=== PATIENT | male | born 1950 | race Caucasian/White ===

== ENCOUNTER 2018-09-23 12:16 | Emergency (ER) | payer MEDICARE ==
[~2018-09-23] VITALS: Ht 188 cm; Wt 76.4 kg
--- NOTE | 2018-09-23 12:43 | NUR ---
PT NOT IN ROOM.
--- NOTE | 2018-09-23 12:55 | NUR ---
PT RETURN TO ROOM FROM RADIOLOGY. 68 YR OLD MALE HERE WITH C/O "POSSIBLE BUMP ON MY RIGHT KNEE AND POSSIBLY A CLOT IN MY RIGHT LEG" DENIES PAIN, HAS SWELLING. HAS BEEN HAVING RECENT FALLS. DENIES CP/SOB, FOUND TO BE IN AFIB.
[2018-09-23 13:08] LABS: BASOPHILS # (AUTO) 0.04 x10^3/uL (0-0.1); BASOPHILS % (AUTO) 1 % (0-1); EOSINOPHILS # (AUTO) 0.06 x10^3/uL (0-0.4); EOSINOPHILS % (AUTO) 1 % (1-7); LYMPHOCYTES # (AUTO) 0.69 x10^3/uL (1-3.4); LYMPHOCYTES % (AUTO) 9 % (22-44); MD NO; MEAN CORPUSCULAR HEMOGLOBIN 31.2 pg (27.5-34.5); MEAN CORPUSCULAR HGB CONC 32.2 g/dL (33.2-36.2); MEAN CORPUSCULAR VOLUME 96.8 fL (81-97); MEAN PLATELET VOLUME 8.6 fL (7.4-10.4); MONOCYTES # (AUTO) 0.53 x10^3/uL (0.2-0.8); MONOCYTES % (AUTO) 7 % (2-9); NEUTROPHILS % (AUTO) 82 % (42-75); PLATELET COUNT 226 x10^3/uL (130-400); RED BLOOD COUNT 4.36 x10^6/uL (4.38-5.82); RED CELL DISTRIBUTION WIDTH 13.3 % (9.4-14.8)
--- NOTE | 2018-09-23 13:09 | NUR ---
PT AND PTS S/O UPDATED ON POC. REPORT TO NORAH MENCHACA
[2018-09-23 13:13] LABS: INTERNATIONAL NORMALIZED RATIO 1.02 (0.93-1.1); PROTHROMBIN TIME 10.7 Seconds (9.6-11.5)
[2018-09-23 13:18] LABS: ALBUMIN 3.6 g/dL (3.4-5.0); ANION GAP 7 mmol/L (5-15); CALCIUM 8.4 mg/dL (8.5-10.1); CHLORIDE 109 mmol/L (98-107)
[2018-09-23 13:22] LABS: ALKALINE PHOSPHATASE 77 U/L (45-117); BILIRUBIN,TOTAL 0.9 mg/dL (0.2-1.0); CREATININE 1.08 mg/dL (0.7-1.3); TOTAL PROTEIN 6.6 g/dL (6.4-8.2)
--- NOTE | 2018-09-23 13:32 | NUR ---
ADDITIONAL ORDERS RECEIVED FROM MD AT THIS TIME
[2018-09-23 13:42] LABS: ALANINE AMINOTRANSFERASE 7 U/L (12-78)
[2018-09-23 14:24] VITALS: BP 105/69
--- NOTE | 2018-09-23 14:25 | NUR ---
TASK RN: HR [id number] AFIB. DENIES CP/SOB/DIZZINESS. PT PWD. DC EDUCATION PROVIDED, PT DEMONSTRATES UNDERSTANDING. PT AMBULATED STEADILY TO DC WITH RN
== END 2018-09-23 14:27 | disposition home or self-care (01) ==
LOC: ED 14:21
DX: S80.01XA Contusion of right knee, initial encounter (principal); I48.2 Chronic atrial fibrillation; E03.9 Hypothyroidism, unspecified; W18.30XA Fall on same level, unspecified, initial encounter; Y93.89 Activity, other specified; Y92.009 Unspecified place in unspecified non-institutional (private) residence as the place of occurrence of the external cause; Y99.8 Other external cause status
CPT/HCPCS: 36415; 71046; 80053; 84443; 85025; 85610; 93005; 99284